=== PATIENT | female | born 1975 | race African-American/Black ===

== ENCOUNTER 2017-05-06 06:43 | Day surgery (SDC) | payer OTHER ==
[~2017-05-06] VITALS: Ht 157.5 cm; Wt 59.1 kg
[2017-05-06 07:35] LABS: HEMATOCRIT 38.5 % (36.0-48.0); HEMOGLOBIN 12.4 g/dL (12-16); MCH 26.6 pg (26.0-34.0); MCHC 32.2 g/dL (31.0-37.0); MCV 82.4 fL (80.0-100.0); MEAN PLATELET VOLUME 8.5 fL (7.4-10.4); RBC 4.67 10x6/uL (4.00-5.40); RDW 16.5 % (11.5-14.5); WBC 5.7 10x3/uL (4.8-10.8)
[2017-05-06 07:56] VITALS: BP 126/81; Ht 157.5 cm; Wt 59.1 kg
--- NOTE | 2017-05-06 10:36 | NUR ---
1020 IV DC WITH CATHER TIP INTACT
--- NOTE | 2017-05-07 21:03 | OP ---
PATIENT NAME: JOANIE WEBBER MEDICAL RECORD: [id number] :77 LOCATION:[facility] ADMISSION DATE: SURGEON: BIBI ALMARAZ MD DATE OF OPERATION: 05/06/2017 PREOPERATIVE DIAGNOSIS: Rectal bleeding, case 62.5. OPERATION PERFORMED: Diagnostic colonoscopy to the cecum. SURGEON: Bibi Almaraz MD ANESTHESIA: TIVA per OPTOMETRIC AIDE with Dr. Sanchez supervising. REFERRING PHYSICIAN: Dr. Hunter of [place]. PREOPERATIVE NOTE: Ms. Joanie Webber is a 41-year-old female patient, who has had recent episode of rectal bleeding and was referred to me by Dr. Hunter for a lower GI endoscopy. Her bleeding has been associated with minimal pain on defecation. She has no other symptoms and a negative family history of colon polyps and colorectal cancer. She has completed a standard MiraLax bowel prep. Under TIVA per OPTOMETRIC AIDE with the patient in lateral decubitus position, a digital rectal exam was performed. This revealed no evidence of hemorrhoidal thrombosis or bleeding. There was no palpable evidence of an anal fissure or any perianal masses, inflammation or sepsis. The Olympus colonoscope was inserted transanally and advanced with a little difficulty to the cecum and slowly withdrawn. The prep was very satisfactory and no abnormalities were seen. The withdrawal time was 8 minutes. The patient will be discharged to home today to continue her high fiber diet with fiber supplement and increased oral fluid and water intake. She is advised to take MiraLax p.r.n. for constipation and return to see me on a p.r.n. basis. Unless she should have further symptoms or bleeding, I think that her next colonoscopy should be done in 5 years. TRANSINT:[id number] Voice Confirmation ID: [id number] DOCUMENT ID: [id number] BIBI ALMARAZ MD at 2103 CC: SINA HUNTER MD [id number] DICTATION DATE: 05/06/17 0848 GRAPHICS PRODUCTION SPECIALIST: 05/06/17 0917 [facility] 05/06/[address] [id number]
== END 2017-05-06 10:34 | disposition home or self-care (01) ==
LOC: D.OPS 06:43
PROVIDERS: Anesthesiology
DX: K62.5 Hemorrhage of anus and rectum (principal); K59.00 Constipation, unspecified; Z01.812 Encounter for preprocedural laboratory examination